=== PATIENT | female | born 1950 | race Caucasian/White ===

== ENCOUNTER 2016-12-13 17:47 | Emergency (ER) | payer MEDICARE, MEDICAID ==
[~2016-12-13] VITALS: Ht 160 cm; Wt 55.0 kg
[~2016-12-13 17:47] MED LIST: ACET-784 PO; AUD NEB; DOCU-174 PO; IPRNEB IH; MULT-1203 PO; ONDA4 PO; OXYC-158 PO; PANT20TA PO; THIA100 PO; VITAD1000 PO
[2016-12-13] MEDS ORDERED: BACITRACIN 0.9 GM PACKET OINTMENT TP ONE (18:30)
[2016-12-13] MEDS ORDERED: LIDOCAINE HCL BUFFERED 1% 20 ML VIAL INJ ONE (18:30)
[2016-12-13] MEDS ORDERED: PERTUSS(ACELL),DIPH,TET VAC/PF 0.5 ML VIAL IM ONE (18:45)
[2016-12-13 20:03] VITALS: BP 129/68
== END 2016-12-13 20:03 | disposition home or self-care (01) ==
LOC: EMS 17:49
DX: S01.81XA Laceration without foreign body of other part of head, initial encounter (principal); F10.129 Alcohol abuse with intoxication, unspecified; F17.210 Nicotine dependence, cigarettes, uncomplicated; W01.0XXA Fall on same level from slipping, tripping and stumbling without subsequent striking against object, initial encounter; Y93.89 Activity, other specified; Y92.022 Bathroom in mobile home as the place of occurrence of the external cause; Y99.9 Unspecified external cause status
CPT/HCPCS: 12013; 70450; 90471; 90715; 99284; 99406; J3490

== ENCOUNTER 2017-02-21 01:46 | Emergency (ER) | payer MEDICAID, MEDICARE ==
[~2017-02-21] VITALS: Ht 162.6 cm; Wt 65.9 kg
[2017-02-21] MEDS ORDERED: PERTUSS(ACELL),DIPH,TET VAC/PF 0.5 ML VIAL IM ONE (03:00)
[2017-02-21] MEDS ORDERED: BACITRACIN 0.9 GM PACKET OINTMENT TP ONE (04:30)
[2017-02-21] MEDS ORDERED: OxyCODONE HCL/ACETAMINOPHEN 5-325 MG TABLET PO ONE (05:00)
[2017-02-21 06:35] VITALS: BP 123/66
== END 2017-02-21 09:05 | disposition home or self-care (01) ==
LOC: EMS 01:47
DX: S42.402A Unspecified fracture of lower end of left humerus, initial encounter for closed fracture (principal); S00.03XA Contusion of scalp, initial encounter; F17.210 Nicotine dependence, cigarettes, uncomplicated; W19.XXXA Unspecified fall, initial encounter; Y93.89 Activity, other specified; Y92.89 Other specified places as the place of occurrence of the external cause; Y99.8 Other external cause status
CPT/HCPCS: 29105; 70450; 90471; 90715; 96372; 99284